=== PATIENT | female | born 1980 | race Caucasian/White ===

== ENCOUNTER 2017-01-18 08:23 | Emergency (ER) | payer OTHER, BC ==
[~2017-01-18] VITALS: Ht 157.5 cm; Wt 65.8 kg
[~2017-01-18 08:23] MED LIST: DAILY MULTIPLE1 EACH PO; HYDROMORPHONE HC2 MG PO; LUTERA1 EACH PO; MIDOL220 MG PO; SOMA350 MG PO; TRAMADOL HCL50 MG PO
[2017-01-18] MEDS ORDERED: GABAPENTIN300 MG PO (08:43)
== END 2017-01-18 10:23 | disposition home or self-care (01) ==
LOC: ED 08:23
DX: R10.9 Unspecified abdominal pain (principal); R10.812 Left upper quadrant abdominal tenderness; Z88.5 Allergy status to narcotic agent; Z79.899 Other long term (current) drug therapy
CPT/HCPCS: 80053; 81001; 85025; 96361; 96374; 96375; 99283; J1885; J2405; J7030